=== PATIENT | female | born 1945 | race Caucasian/White ===

== ENCOUNTER → 2016-05-20 | Outpatient (CLI) | payer MEDICARE, OTHER | END | disposition home or self-care (01) | LOC: GMAB 11:10 | PROVIDERS: ATTEND Family Medicine | DX: D50.8 Other iron deficiency anemias (principal); E53.8 Deficiency of other specified B group vitamins ==

== ENCOUNTER → 2017-12-24 | Outpatient (CLI) | payer MEDICARE, OTHER | LOC: GMAE 10:33 | PROVIDERS: ATTEND Family Medicine | DX: E53.8 Deficiency of other specified B group vitamins (principal); D53.9 Nutritional anemia, unspecified; D50.9 Iron deficiency anemia, unspecified; E03.9 Hypothyroidism, unspecified ==

== ENCOUNTER → 2017-12-30 | Outpatient (CLI) | payer MEDICARE, OTHER ==
--- NOTE | 2017-12-30 14:43 | CT ---
EXAM DESCRIPTION: CTA Head: Computed Tomography. CLINICAL HISTORY: POLYCYSTIC KIDNEY DISEASE. Increased risk for cerebral raphael aneurysms. COMPARISON: MRI scan of the brain with and without contrast 10/25/2014. TECHNIQUE: Spiral -axial scans through the head and brain at 2.5 x 20 mm intervals, without and with nonionic IV contrast. Coronal and sagittal 2 x 2 mm reconstructions. 3-D MIP images and volume rendering images at 0.6 mm slices. No adverse reactions. Total Exam DLP: 1719.94 mGy-cm. This exam was performed according to our departmental CT dose-optimization program which includes automated exposure control, adjustment of the mA and/or kV according to patient size and/or use of iterative reconstruction technique; to reduce radiation dose to as low as reasonably achievable (ALARA). FINDINGS: The [place] is well demonstrated with IV contrast. No significant stenoses. No aneurysms. No mass effect or vasculitis. Small bilateral posterior communicating arteries between the anterior and posterior circulations. No hemorrhage. No mass-effect and no midline shift. Bilateral mild low-density periventricular white matter and bilateral basal ganglia. These lesions do not enhance with contrast. No abnormal radiodense material in the brain parenchyma.Vascular calcifications anterior and posterior circulations; physiologic calcifications in the pineal gland and choroid plexus. No effacement or displacement of the ventricles, CSF spaces, or subdural spaces. Normal contrast enhancement. No extra axial fluid collection or hemorrhage. No gross abnormalities of the bony calvarium. Paranasal and mastoid air cells are unremarkable. Minimal thickening of the inner table of the frontal bones bilaterally. IMPRESSION: 1. No hemorrhage. No mass effect or midline shift.. Bilateral periventricular white matter changes most likely related to cerebral microvascular disease. No abnormal enhancement in the white matter with the remainder of the brain parenchyma.. 2. CTA of the cerebral circulation is unremarkable with no mass effect, no significant stenoses, and no aneurysms, and no vasculitis.. Electronically signed by: Manny Desai MD 12/30/2017 2:42 PM SHEET ROCKER
--- NOTE | 2017-12-30 15:29 | US ---
US THYROID CLINICAL STATEMENT: DISORDER OF THYROID. . No palpable mass. No prior surgery. No thyroid treatment. COMPARISON: MRI scan of the brain on this visit. FINDINGS: Size right thyroid lobe: 6.9 x 3.4 x 3.0 cm Size left thyroid lobe: 6.0 x 2.8 x 2.7 cm Size isthmus: 0.5 cm Estimated total number of nodules greater than or equal to 1 cm: 4 Nodule 1: Size: 2.3 x 2.1 x 1.5 cm Location: Right Upper. Composition: solid or almost completely solid: 2 points. Echogenicity: isoechoic: 1 point. Hypoechoic rim. Shape: Wider than tall. Margins: smooth: 0 points. Vascularity abutting the margin. Echogenic foci: none: 0 points ACR Total Points: 3; ACR TI-RADS risk category: TR3 - mildly suspicious nodule. Nodule 2: Size: 1.0 x 0.9 x 0.8 cm Location: Right Mid Composition: solid or almost completely solid: 2 points Echogenicity: hyperechoic: 1 point Shape: taller than wide: 3 points Margins: smooth: 0 points. Hypoechoic rim. Echogenic foci: none: 0 points ACR Total Points: 6; ACR TI-RADS risk category: TR4 - moderately suspicious nodule. Nodule 3: Size: 1.4 x 1.3 x 1.2 cm Location: Left Mid Composition: solid or almost completely solid: 2 points Echogenicity: hyperechoic: 1 point Shape: wider than tall: 0 points Margins: smooth: 0 points. Partially hypoechoic rim. Echogenic foci: none: 0 points ACR Total Points: 3; ACR TI-RADS risk category: TR3 - mildly suspicious nodule. Nodule 4: Size: 1.0 x 0.9 x 0.5 cm Location: Left Upper Composition: solid or almost completely solid: 2 points Echogenicity: hyperechoic: 1 point Shape: wider than tall: 0 points Margins: smooth: 0 points. Hypoechoic rim. Echogenic foci: none: 0 points ACR Total Points: 3; ACR TI-RADS risk category: TR3 - mildly suspicious nodule. Multiple other nodules seen bilaterally which were not measured. The soft tissue around the thyroid gland show no evidence of distinct solid mass or cyst. No parenchymal edema or large calcifications. No abnormal vascularity. IMPRESSION: 1. Nodule 1: ACR TI-RADS 2017 Category TR 3. Recommend: Follow-up ultrasound in 1 year. [facility] Best [facility] recommendations are based upon ACR TI-RADS 2017 recommendations below.* 2. Nodule 2: ACR TI-RADS 2017 Category TR 4. Recommend: Follow-up ultrasound in 1 year. 3. Nodule 3: ACR TI-RADS 2017 Category TR 3. Recommend: Follow-up ultrasound in 1 year. 4. Nodule 4: ACR TI-RADS 2017 Category TR 3. Recommend: No follow-up. Soft tissue around the thyroid gland is unremarkable. *ACR TI-RADS 2017 Recommendations: TR1: No FNA or follow up TR2: No FNA or follow up TR3: FNA if >/= 2.5 cm, follow up if 1.5 - 2.4 cm in 1, 3, and 5 years TR4: FNA if >/= 1.5 cm, follow up if 1.0 - 1.4 cm in 1, 2, 3, and 5 years TR5: FNA if >/= 1.0 cm, follow up if 0.5 - 0.9 cm every year for 5 years ACR TI-RADS recommends that no more than two nodules with the highest ACR TI-RADS total point should be biopsied and no more than four nodules should be followed. Electronically signed by: Manny Desai MD 12/30/2017 3:27 PM AD COMPOSITOR
--- NOTE | 2018-01-01 09:46 | MAM ---
EXAM DESCRIPTION: 3D Screening BILATERAL : Digital Mammography. CLINICAL HISTORY: 72 years Female SCREEN . No complaints. No personal or family history of breast cancer. Childbirth. Postmenopausal. Taking HRT 5 or more years ago.. Lifetime risk of developing breast cancer (Tyrer-Cuzick model)(%): 4.5. COMPARISON: 2-D digital screening bilateral mammography 12/20/2013. No prior reports available. TECHNIQUE: Bilateral CC and MLO projection full-field images, digital tomosynthesis mammographic technique. Bilateral digital 2-D full-field MLO images. CAD not available for tomosynthesis or 2-D images. FINDINGS: The breast parenchymal density pattern is: Scattered areas of fibroglandular density. No skin thickening or nipple retraction. Bilateral axillary lymph nodes. Bilateral solitary microcalcifications. Focal asymmetry just lateral to the posterior nipple line in the middle third of the right breast. No well seen on the prior study. No new focal, stellate mass or density, focal asymmetry , and no suspicious microcalcifications left breast Taking into account, differences in mammographic technique. IMPRESSION: BI-RADS CATEGORY: 0 - INCOMPLETE- Need additional imaging evaluation. FOLLOW-UP: Recall for additional imaging: Orthogonal full-field right breast diagnostic images. Targeted right breast ultrasound to follow.. Written communication concerning the IMPRESSION and Follow-up, will be mailed to the patient and referring health care provider. Electronically signed by: Manny Desai MD 01/01/2018 9:45 AM PSYCHIATRIC REGISTERED NURSE
== END ==
LOC: US 08:30
PROVIDERS: ATTEND Family Medicine
DX: Z12.31 Encounter for screening mammogram for malignant neoplasm of breast (principal); Q61.2 Polycystic kidney, adult type; E07.9 Disorder of thyroid, unspecified

== ENCOUNTER → 2018-01-12 | Outpatient (CLI) | payer MEDICARE, OTHER ==
--- NOTE | 2018-01-12 17:55 | MAM ---
EXAM DESCRIPTION: 3D Diagnostic, Right: Digital Mammography CLINICAL HISTORY: 72 yearsFemaleABNORMAL SCREENING focal asymmetry near the central axis, middle third right breast.. COMPARISON: Bilateral screening digital breast tomosynthesis 12/30/2017. Targeted right breast ultrasound included in this examination.. TECHNIQUE: Right breast LM projection full-field images, digital mammographic tomosynthesis technique. CAD not available. FINDINGS: The breast parenchymal density pattern is: Scattered areas of fibroglandular density. No skin thickening or nipple retraction multiple calcifications. Densest fibroglandular tissues are anterior. Focal asymmetry is not well seen on the full field LM tomosynthesis images. Ultrasound: Scanning of the middle third of the right breast at the 11:00 position. Mostly fatty echotexture with small islands of fibroglandular tissues. Emphasis on the tissue 5 cm from the nipple. No dominant solid focal mass or cyst. No parenchymal edema or large calcifications. No overlying skin changes. No abnormal vascularity. IMPRESSION: Benign exam. BIRAD CATEGORY: 2 BENIGN FINDINGS. RECOMMENDATIONS: FOLLOW UP: Return to routine digital bilateral mammographic screening, one year interval from December 2017. The FINDINGS and the FOLLOW-UP plan were reviewed in person with the patient after the examination. Written communication explaining the IMPRESSION and FOLLOW-UP will be mailed to the patient and referring care provider. According to the [employer], yearly mammograms are recommended starting at age 40 and continuing as long as a woman is in good health. Any breast change noted on a breast self-exam should be reported promptly to the patient's healthcare provider. Breast MRI is recommended for women with an approximately 20-25% or greater lifetime risk of breast cancer, including women with a strong family history of breast or ovarian cancer and women who have been treated for Hodgkin's disease. A negative mammographic report should not delay tissue diagnosis in patients with significant clinical history or physical findings. Extremely dense breast tissue limits the sensitivity of digital mammography. Electronically signed by: Manny Desai MD 01/12/2018 5:53 PM CRAYON PAINTER
--- NOTE | 2018-01-12 17:58 | US ---
EXAM DESCRIPTION: Breast,Right: Ultrasound CLINICAL HISTORY: 72 yearsFemaleABNORMAL MAMMO COMPARISON: Digital diagnostic tomosynthesis RIGHT breast on this visit. TECHNIQUE: Transcutaneous scanning of the right breast utilizing shabazz-scale and Doppler modes. Scanning performed by the cro and Dr. Desai. FINDINGS: Scanning of the middle third of the right breast at the 11:00 position. Mostly fatty echotexture with small islands of fibroglandular tissues. Emphasis on the tissue 5 cm from the nipple. No dominant solid focal mass or cyst. No parenchymal edema or large calcifications. No overlying skin changes. No abnormal vascularity. IMPRESSION: 1. Bi-Rads Category 2: Benign. 2. Please refer to digital diagnostic tomosynthesis examination of the right breast with report on this visit. The FINDINGS and the FOLLOW-UP plan were reviewed in person with the patient after the examination. Written communication explaining the IMPRESSION and FOLLOW-UP will be mailed to the patient and referring care provider. Electronically signed by: Manny Desai MD 01/12/2018 5:57 PM SEWAGE SCREEN OPERATOR
== END ==
LOC: MAMMO 09:30
PROVIDERS: ATTEND Family Medicine
DX: R92.2 Inconclusive mammogram (principal)
CPT/HCPCS: 76641; 77065; G0279

== ENCOUNTER → 2019-01-11 | Outpatient (CLI) | payer MEDICARE, OTHER ==
--- NOTE | 2019-01-13 21:36 | MAM ---
EXAM DESCRIPTION: 3D Screening BILATERAL : Digital Mammography. CLINICAL HISTORY: 73 years Female Screening . No complaints. No personal or family history of breast cancer. Menarche age 15. First childbirth age 23. Postmenopausal duration unknown. HRT 5 or more years ago.. Lifetime risk of developing breast cancer (Tyrer-Cuzick model)(%): 4.3 COMPARISON: Bilateral screening digital breast tomosynthesis 30 December 2017. Diagnostic right breast mammography and directed ultrasound 12 January 2018. TECHNIQUE: Bilateral CC and MLO projection full-field images, digital tomosynthesis mammographic technique. Bilateral digital 2-D full-field MLO images. CAD not available for tomosynthesis or 2-D images. FINDINGS: The breast parenchymal density pattern is: Scattered areas of fibroglandular density. No skin thickening or nipple retraction. Bilateral skin mole markers. Bilateral solitary microcalcifications. Stable group of microcalcifications upper posterior right breast. No new focal, stellate mass or density, focal asymmetry , and no suspicious microcalcifications bilaterally. Stable mammograms compared to prior study. IMPRESSION: Benign exam. BIRAD CATEGORY: 2 BENIGN FINDINGS. RECOMMENDATIONS: FOLLOW UP: Routine digital bilateral mammographic screening, one year interval from date Written communication explaining the IMPRESSION and follow-up, will be mailed to the patient and referring health care provider. According to the [employer], yearly mammograms are recommended starting at age 40 and continuing as long as a woman is in good health. Any breast change noted on a breast self-exam should be reported promptly to the patient's healthcare provider. Breast MRI is recommended for women with an approximately 20-25% or greater lifetime risk of breast cancer, including women with a strong family history of breast or ovarian cancer and women who have been treated for Hodgkin's disease. A negative mammographic report should not delay tissue diagnosis in patients with significant clinical history or physical findings. Extremely dense breast tissue limits the sensitivity of digital mammography. Electronically signed by: Manny Desai MD 01/13/2019 9:35 PM RADIOLOGY ASSISTANT
== END | disposition home or self-care (01) ==
LOC: MAMMO 11:00
PROVIDERS: ATTEND Family Medicine
DX: Z12.31 Encounter for screening mammogram for malignant neoplasm of breast (principal)

== ENCOUNTER → 2020-03-21 | Outpatient (CLI) | payer MEDICARE, OTHER ==
--- NOTE | 2020-03-22 06:32 | CT ---
EXAM DESCRIPTION: Abdomen/Pelvis w/wo Contrast (accession [id number]), Chest w/wo Contrast (accession [id number]) CLINICAL HISTORY: 75 years Female, localized swelling TECHNIQUE: This exam was performed according to our departmental dose-optimization program, which includes automated exposure control, adjustment of the mA and/or kV according to patient size and/or use of iterative reconstruction technique. COMPARISON: December 2017 FINDINGS: Right thyroid lobe nodule measuring 2 cm. No axillary adenopathy. Normal caliber thoracic aorta. Trace coronary artery calcifications. Trace pericardial fluid. No mediastinal adenopathy. Sequela of prior granulomatous disease. No pneumothorax. Linear left basilar volume loss. No focal consolidation. No suspicious pulmonary nodule. Scattered benign hepatic cysts. No suspicious hepatic lesion. No biliary dilatation. Cholecystectomy. The portal vein is patent. Granulomas in the spleen. The pancreas and adrenal glands are unremarkable. Sequela of polycystic kidney disease. No hydronephrosis or obstructing urolithiasis identified. Unremarkable bladder. Hysterectomy. No suspicious adnexal lesion. Scattered colonic diverticula without focal inflammatory change. No evidence of bowel obstruction. No findings to suggest appendicitis. No adenopathy. No focal fluid collection. No free air. Normal caliber abdominal aorta. Mild atherosclerotic disease. No acute or suspicious osseous abnormality. Scattered degenerative changes present. IMPRESSION: 1. Right thyroid lobe nodule measuring 2 cm. Recommend correlation with ultrasound. 2. Sequela of polycystic kidney disease. Electronically signed by: Juancarlos Manning MD 03/22/2020 6:31 AM MAINTENANCE SUPERVISOR
--- NOTE | 2020-03-22 06:33 | CT ---
EXAM DESCRIPTION: Abdomen/Pelvis w/wo Contrast (accession [id number]), Chest w/wo Contrast (accession [id number]) CLINICAL HISTORY: 75 years Female, localized swelling TECHNIQUE: This exam was performed according to our departmental dose-optimization program, which includes automated exposure control, adjustment of the mA and/or kV according to patient size and/or use of iterative reconstruction technique. COMPARISON: December 2017 FINDINGS: Right thyroid lobe nodule measuring 2 cm. No axillary adenopathy. Normal caliber thoracic aorta. Trace coronary artery calcifications. Trace pericardial fluid. No mediastinal adenopathy. Sequela of prior granulomatous disease. No pneumothorax. Linear left basilar volume loss. No focal consolidation. No suspicious pulmonary nodule. Scattered benign hepatic cysts. No suspicious hepatic lesion. No biliary dilatation. Cholecystectomy. The portal vein is patent. Granulomas in the spleen. The pancreas and adrenal glands are unremarkable. Sequela of polycystic kidney disease. No hydronephrosis or obstructing urolithiasis identified. Unremarkable bladder. Hysterectomy. No suspicious adnexal lesion. Scattered colonic diverticula without focal inflammatory change. No evidence of bowel obstruction. No findings to suggest appendicitis. No adenopathy. No focal fluid collection. No free air. Normal caliber abdominal aorta. Mild atherosclerotic disease. No acute or suspicious osseous abnormality. Scattered degenerative changes present. IMPRESSION: 1. Right thyroid lobe nodule measuring 2 cm. Recommend correlation with ultrasound. 2. Sequela of polycystic kidney disease. Electronically signed by: Juancarlos Manning MD 03/22/2020 6:31 AM DIRECTOR OF PROVIDER RELATIONS
--- NOTE | 2020-03-22 06:35 | CT ---
EXAM DESCRIPTION: Soft Tissue Neck w/wo Contrast CLINICAL HISTORY: 75 years Female, localized swelling TECHNIQUE: This exam was performed according to our departmental dose-optimization program, which includes automated exposure control, adjustment of the mA and/or kV according to patient size and/or use of iterative reconstruction technique. COMPARISON: None at time of initial interpretation. FINDINGS: Visualized brain and orbits are unremarkable. Maxillary sinus disease. The airway is patent. The trachea is midline. Heterogeneous thyroid gland. 2 cm right thyroid lobe nodule. Visualized lung apices are clear. No suspicious mass, fluid collection or adenopathy. Salivary glands are unremarkable. Vasculature is patent. Tracheal diverticulum. No acute or suspicious osseous abnormality. Scattered degenerative changes present. IMPRESSION: Right thyroid lobe nodule measuring 2 cm. Recommend correlation with ultrasound. Electronically signed by: Juancarlos Manning MD 03/22/2020 6:34 AM INJECTION MOLDING MACHINE OFFBEARER
--- NOTE | 2020-03-23 17:54 | MAM ---
EXAM DESCRIPTION: 3D Screening BILATERAL : Digital Mammography. CLINICAL HISTORY: 75 years Female screening . No complaints. No personal or family history of breast cancer. Menarche age 16. Childbirth age 24. Menopause age 34. HRT 5 or more years ago. Lifetime risk of developing breast cancer (Tyrer-Cuzick model)(%): 3.6. COMPARISON: Bilateral screening digital breast tomosynthesis December 2018 and December 2017 TECHNIQUE: Bilateral CC and MLO projection full-field images, digital tomosynthesis mammographic technique. Bilateral digital 2-D full-field MLO images. CAD available for 2-D images. FINDINGS: The breast parenchymal density pattern is: Scattered areas of fibroglandular density. Axillary nodes. Intramammary nodes. Solitary microcalcifications. Groups of benign type calcifications. Skin calcifications. No skin thickening or nipple retraction No new focal, stellate mass or density, focal asymmetry , and no suspicious microcalcifications bilaterally. Stable mammograms compared to prior study. IMPRESSION: Benign exam. BIRAD CATEGORY: 2 BENIGN FINDINGS. RECOMMENDATIONS: FOLLOW UP: Routine digital bilateral mammographic screening, one year interval from February 2020. Written communication explaining the IMPRESSION and follow-up, will be mailed to the patient and referring health care provider. According to the [employer], yearly mammograms are recommended starting at age 40 and continuing as long as a woman is in good health. Any breast change noted on a breast self-exam should be reported promptly to the patient's healthcare provider. Breast MRI is recommended for women with an approximately 20-25% or greater lifetime risk of breast cancer, including women with a strong family history of breast or ovarian cancer and women who have been treated for Hodgkin's disease. A negative mammographic report should not delay tissue diagnosis in patients with significant clinical history or physical findings. Extremely dense breast tissue limits the sensitivity of digital mammography. Electronically signed by: Manny Desai MD 03/23/2020 5:53 PM ENROLLMENT COUNSELOR
== END ==
LOC: YCFC.O 10:39
PROVIDERS: ATTEND Family Medicine
DX: Z12.31 Encounter for screening mammogram for malignant neoplasm of breast (principal); E04.1 Nontoxic single thyroid nodule; R63.4 Abnormal weight loss; Q61.2 Polycystic kidney, adult type; R53.83 Other fatigue; Z13.220 Encounter for screening for lipoid disorders; D53.9 Nutritional anemia, unspecified

== ENCOUNTER → 2020-03-23 | Outpatient (CLI) | payer MEDICARE, OTHER | LOC: YCFC.O 12:17 | PROVIDERS: ATTEND Family Medicine | DX: E04.1 Nontoxic single thyroid nodule (principal); J06.9 Acute upper respiratory infection, unspecified ==

== ENCOUNTER → 2020-03-27 | Outpatient (CLI) | payer MEDICARE, OTHER ==
--- NOTE | 2020-03-27 20:41 | US ---
US THYROID CLINICAL STATEMENT:75 years Female NONTOXIC SINGLE THYROID NODULE. COMPARISON: None TECHNIQUE: Transcutaneous scanning, grayscale and Doppler modes. FINDINGS: Size right thyroid lobe: 6.8 x 4.1 x 3.1 cm Size left thyroid lobe: 5.6 x 3.0 x 2.8 cm Size isthmus: 0.18 cm Estimated total number of nodules greater than or equal to 1 cm: 2-3.. Nodule 1: Size: 4.0 x 3.8 x 2.5 cm. Right upper nodule (1) on the prior study 2.3 x 2.1 x 1.5 cm. Right mid nodule (2) on the prior study 1.0 x 0.9 x 0.8 cm. Location: Right Mid. Also upper. Composition: solid or almost completely solid: 2 points Echogenicity: hyperechoic: 1 point Shape: wider than tall: 0 points Margins: ill-defined: 0 points Echogenic foci: None. ACR Total Points: 3; ACR TI-RADS risk category: TR3 - mildly suspicious nodule.. Nodule 2: See above. Nodule 3: From the prior study not seen on this study. Nodule 4: Size: 2.0 x 1.9 x 1.7 cm. 1.0 x 0.9 x 0.5 on the prior study. Location: Left Upper Composition: solid or almost completely solid: 2 points Echogenicity: hyperechoic: 1 point Shape: taller than wide: 3 points Margins: ill-defined: 0 points Echogenic foci: none: 0 points ACR Total Points: 6; ACR TI-RADS risk category: TR4 - moderately suspicious nodule. No dominant solid mass, no distinct cyst, no parenchymal edema, no large calcifications in the surrounding soft tissues. IMPRESSION: 1. Nodule 1: Intraoperative to be Nodules 1 and 2 on the prior study, which have enlarged and are contiguous. ACR TI-RADS 2017 Category TR3. Recommend: Ultrasound-guided fine needle aspiration. Recommendations based upon [facility] Best [facility] recommendations and ACR TI-RADS 2017 guidelines. Please see below*. 2. Nodule 4: Enlarged Since the prior study and now taller than wide. ACR TI-RADS 2017 Category TR4. Recommend: Ultrasound-guided fine needle aspiration. 3. Soft tissue around the thyroid gland is unremarkable. *ACR TI-RADS 2017 Recommendations for imaging follow-up of nodules (baseline study): TR1: No FNA or follow up TR2: No FNA or follow up TR3: FNA if >/= 2.5 cm, follow up if 1.5 - 2.4 cm in 1, 3, and 5 years TR4: FNA if >/= 1.5 cm, follow up if 1.0 - 1.4 cm in 1, 2, 3, and 5 years TR5: FNA if >/= 1.0 cm, follow up if 0.5 - 0.9 cm every year for 5 years ACR TI-RADS recommends that no more than two nodules with the highest ACR TI-RADS total point should be biopsied and no more than four nodules should be followed. These recommendations do not apply to patients with increased risk for thyroid cancer or patients with symptomatic thyroid disease. Electronically signed by: Manny Desai MD 03/27/2020 8:39 PM [facility]
== END ==
LOC: US 10:27
PROVIDERS: ATTEND Family Medicine
DX: E04.2 Nontoxic multinodular goiter (principal)

== ENCOUNTER 2020-04-16 05:30 | Day surgery (SDC) | payer MEDICARE, OTHER ==
[2020-04-16] MEDS ORDERED: TROP1%/CYCLOPEN 1%/PHENYL 2.5% DROPS ONE (08:19)
[2020-04-16] MEDS ORDERED: PROPARACAINE 0.5% OPHTH SOL 15 ML BTTL ONE (08:19)
[2020-04-16] MEDS ORDERED: MOXIFLOXACIN HCL (OPHTH) 1 DROP DROPS ONE (08:19)
[2020-04-16] MEDS ORDERED: PROPARACAINE 0.5% OPHTH SOL 15 ML BTTL RIGHT_EYE ONE ×2 (09:40→09:58)
[2020-04-16] MEDS ORDERED: LIDOCAINE 1% MPF 2 ML VIAL INJ ONE ×2 (09:40→09:58)
[2020-04-16] MEDS ORDERED: BRIMONIDINE 0.2% OPHTH DROPS RIGHT_EYE ONE ×2 (09:41→09:58)
[2020-04-16] MEDS ORDERED: DEXAMETHASONE 0.1% OPHTH SOL 1 DROP RIGHT_EYE ONE ×2 (09:41→09:58)
[2020-04-16] MEDS ORDERED: MOXIFLOXACIN HCL (OPHTH) 1 DROP DROPS RIGHT_EYE ONE ×2 (09:41→09:58)
[2020-04-16] MEDS ORDERED: TOBRAMYCIN SULF 0.3 % OPHT SOL 1 DROP RIGHT_EYE ONE ×2 (09:41→09:58)
[2020-04-16] MEDS ORDERED: MIDAZOLAM INJ 2 MG/2 ML VIAL ONE (09:57)
== END 2020-04-16 11:00 | disposition home or self-care (01) ==
LOC: AMB 05:30
PROVIDERS: ATTEND Ophthalmology
DX: H25.11 Age-related nuclear cataract, right eye (principal)
CPT/HCPCS: 00142; 66984; J2250